=== PATIENT | female | born 1980 | race Two or more races ===

== ENCOUNTER 2017-04-26 18:10 | Emergency (ER) | payer OTHER ==
[2017-04-26 18:41] LABS: URINE HCG POC HCG NEGATIVE (Negative)
[2017-04-26 18:48] LABS: BILIRUBIN,URINE NEGATIVE (NEG); CLARITY,URINE CLEAR; COLOR,URINE YELLOW; GLUCOSE,URINE NEGATIVE (NEG); NITRITE,URINE NEGATIVE (NEG); PH,URINE 6.5; PROTEIN,URINE NEGATIVE (NEG-TRACE); UROBILINOGEN,URINE 0.2 mg/dL (0.2 mg/dL)
[2017-04-26 18:53] LABS: ADD MAN DIFF? NO
[2017-04-26 19:00] LABS: AGAP ISTAT 15 mmol/L (6-14); BACTERIA,URINE 0 /HPF (0-FEW); BUN ISTAT 12 mg/dL (8-26); CHLORIDE ISTAT 106 mmol/L (98-110); CREATININE ISTAT 0.6 mg/dL (0.5-1.4); GLUCOSE ISTAT 111 mg/dL (70-99); HEMATOCRIT ISTAT 32 % (36-40); HEMOGLOBIN ISTAT 10.9 g/dL (12-15); ION CA ISTAT 1.17 mmol/L (1.13-1.32); POTASSIUM ISTAT 3.9 mmol/L (3.5-5.0); RBC,URINE 0 /HPF (0-2); SODIUM ISTAT 141 mmol/L (135-145); TOT CO2 ISTAT 26 mmol/L (23-32); WBC,URINE 0 /HPF (0-4)
[2017-04-26 19:01] LABS: BASO % 1 % (0-3); EOS # 0.1 x10^3/uL (0.0-0.7); EOS % 1 % (0-3); HEMATOCRIT 34.3 % (36.0-47.0); HEMOGLOBIN 11.4 g/dL (12.0-15.5); LYMPH # 1.5 x10^3/uL (1.0-4.8); LYMPH % 22 % (24-48); MEAN CORPUSCULAR HEMOGLOBIN 27 pg (25-35); MEAN CORPUSCULAR HGB CONC 33 g/dL (31-37); MEAN CORPUSCULAR VOLUME 80 fL (79-100); MONO # 0.3 x10^3/uL (0.0-1.1); MONO % 5 % (0-9); NEUT # 4.9 x10^3uL (1.8-7.7); NEUT % 72 % (31-73); PLATELET COUNT 244 x10^3/uL (140-400); RED BLOOD COUNT 4.29 x10^6/uL (3.50-5.40); RED CELL DISTRIBUTION WIDTH 13.9 % (11.5-14.5); WHITE BLOOD COUNT 6.8 x10^3/uL (4.0-11.0)
[2017-04-26 19:09] LABS: ALBUMIN 3.8 g/dL (3.4-5.0); ALK PHOS 87 U/L (46-116); ALT (SGPT) 28 U/L (14-59); AST (SGOT) 21 U/L (15-37); DIRECT BILIRUBIN < 0.1 mg/dL (0.0-0.2); LIPASE 153 U/L (73-393); TOTAL BILIRUBIN 0.2 mg/dL (0.2-1.0); TOTAL PROTEIN 8.7 g/dL (6.4-8.2)
[2017-04-26] MEDS ORDERED: CONTRAST GIVEN MC (19:15)
[2017-04-26] MEDS: ONDANSETRON PF 4 MG/2 ML VIAL. IV (19:18)
[2017-04-26] MEDS: MORPHINE SULFATE 4 MG/ML DISP.SYRIN. IV (19:18)
[2017-04-26] MEDS: IV NORMAL SALINE 1000ML BAG 1,000 ML IV (19:19)
[2017-04-26] MEDS: IOHEXOL 300 MG/ML 100ML VIAL. IV (19:50)
== END 2017-04-26 20:31 | disposition home or self-care (01) ==
LOC: ER 18:10
DX: R10.84 Generalized abdominal pain (principal)
CPT/HCPCS: 36415; 74177; 80047; 80076; 81001; 81025; 83690; 85025; 96361; 96374; 96375; 99285-25; J2270; J2405; J7030; Q9967

== ENCOUNTER 2019-01-31 16:42 | Emergency (ER) | payer SELFPAY ==
[~2019-01-31] VITALS: Ht 152.4 cm; Wt 79.6 kg
[~2019-01-31 16:42] MED LIST: LEVE500T56 PO
[2019-01-31] MEDS ORDERED: MORPHINE SULFATE 10 MG/ML VIAL. IV STA (17:40)
[2019-01-31] MEDS ORDERED: IV NORMAL SALINE 1000ML BAG 1,000 ML IV ONE (17:45)
[2019-01-31] MEDS ORDERED: ONDANSETRON PF 4 MG/2 ML VIAL. IV ONE (17:45)
[2019-01-31 17:47] LABS: BASO % 1 % (0-3); EOS # 0.1 x10^3/uL (0.0-0.7); EOS % 1 % (0-3); HEMATOCRIT 33.4 % (36.0-47.0); HEMOGLOBIN 10.7 g/dL (12.0-15.5); LYMPH # 2.1 x10^3/uL (1.0-4.8); LYMPH % 29 % (24-48); MEAN CORPUSCULAR HEMOGLOBIN 23 pg (25-35); MEAN CORPUSCULAR HGB CONC 32 g/dL (31-37); MEAN CORPUSCULAR VOLUME 72 fL (79-100); MONO # 0.5 x10^3/uL (0.0-1.1); MONO % 7 % (0-9); NEUT # 4.6 x10^3/uL (1.8-7.7); NEUT % 62 % (31-73); PLATELET COUNT 302 x10^3/uL (140-400); RED BLOOD COUNT 4.62 x10^6/uL (3.50-5.40); WHITE BLOOD COUNT 7.4 x10^3/uL (4.0-11.0)
--- NOTE | 2019-01-31 17:51 | PHYS DOC ---
Past Medical History Past Medical History: No Pertinent History Past Surgical History: Tubal ligation Alcohol Use: None Drug Use: None Adult General Chief Complaint Chief Complaint: BLOODY STOOL [facility] HPI Patient is a 38 year old female who presents with nausea, vomiting, bright red blood in her stool every time she has a toilet. She is also having abdominal pain has been ongoing for week. She rates her pain 10 out of 10 in severity and sharp. States she has a history of seizures and also is a tubal ligation. Review of Systems Review of Systems Constitutional: Denies fever or chills [] Eyes: Denies change in visual acuity, redness, or eye pain [] HENT: Denies nasal congestion or sore throat [] Respiratory: Denies cough or shortness of breath [] Cardiovascular: No additional information not addressed in HPI [] GI: Reports abdominal pain, nausea, vomiting, and bloody stools. : Denies dysuria or hematuria [] Musculoskeletal: Denies back pain or joint pain [] Integument: Denies rash or skin lesions [] Neurologic: Denies headache, focal weakness or sensory changes [] Endocrine: Denies polyuria or polydipsia [] Complete systems were reviewed and found to be within normal limits, except as documented in this note. Current Medications Current Medications Current Medications Medications (Trade) Dose Ordered Sig/Thomas Start Time Stop Time Status Last Admin Dose Admin Info (CONTRAST GIVEN -- Rx MONITORING) 1 each PRN DAILY PRN 01/31/19 18:15 02/02/19 18:14 Iohexol (Omnipaque 300 Mg/ml) 75 ml 1X ONCE 01/31/19 18:30 01/31/19 18:31 DC 01/31/19 18:24 75 ML Morphine Sulfate (Morphine Sulfate) 5 mg 1X STAT 01/31/19 17:40 01/31/19 17:44 DC 01/31/19 19:04 5 MG Ondansetron HCl (Zofran) 4 mg 1X ONCE 01/31/19 17:45 01/31/19 17:46 DC 01/31/19 19:02 4 MG Sodium Chloride 1,000 ml @ 1,000 mls/hr 1X ONCE 01/31/19 17:45 01/31/19 18:44 DC 01/31/19 19:06 1,000 MLS/HR Allergies Allergies Allergies Coded Allergies Type Severity Reaction Last Updated Verified No Known Drug Allergies 04/26/17 No Physical Exam Physical Exam Constitutional: Well developed, well nourished, no acute distress, non-toxic appearance. [] HENT: Normocephalic, atraumatic, bilateral external ears normal, oropharynx moist, no oral exudates, nose normal. [] Eyes: PERRLA, EOMI, conjunctiva normal, no discharge. [] Neck: Normal range of motion, no tenderness, supple, no stridor. [] Cardiovascular:Heart rate regular rhythm, no murmur [] Lungs & Thorax: Bilateral breath sounds clear to auscultation [] Abdomen: Bowel sounds normal, soft, diffuse tenderness, no masses, no pulsatile masses. [] Skin: Warm, dry, no erythema, no rash. [] Back: No tenderness, no CVA tenderness. [] Extremities: No tenderness, no cyanosis, no clubbing, ROM intact, no edema. [] Neurologic: Alert and oriented X 3, normal motor function, normal sensory function, no focal deficits noted. [] Psychologic: Affect normal, judgement normal, mood normal. [] Rectal Exam: No blood noted on exam, no hemorrhoids. Current Patient Data Vital Signs Vital Signs Date Time Temp Pulse Resp B/P (MAP) Pulse Ox O2 Delivery O2 Flow Rate FiO2 01/31/19 19:04 13 97 Room Air 01/31/19 16:52 98.4 101 157/89 (111) 98.4 Lab Values Laboratory Tests Test 01/31/19 17:05 01/31/19 17:25 POC Urine HCG, Qualitative Hcg negative (Negative) White Blood Count 7.4 x10^3/uL (4.0-11.0) Red Blood Count 4.62 x10^6/uL (3.50-5.40) Hemoglobin 10.7 g/dL (12.0-15.5) L Hematocrit 33.4 % (36.0-47.0) L Mean Corpuscular Volume 72 fL (79-100) L Mean Corpuscular Hemoglobin 23 pg (25-35) L Mean Corpuscular Hemoglobin Concent 32 g/dL (31-37) Red Cell Distribution Width 17.0 % (11.5-14.5) H Platelet Count 302 x10^3/uL (140-400) Neutrophils (%) (Auto) 62 % (31-73) Lymphocytes (%) (Auto) 29 % (24-48) Monocytes (%) (Auto) 7 % (0-9) Eosinophils (%) (Auto) 1 % (0-3) Basophils (%) (Auto) 1 % (0-3) Neutrophils # (Auto) 4.6 x10^3/uL (1.8-7.7) Lymphocytes # (Auto) 2.1 x10^3/uL (1.0-4.8) Monocytes # (Auto) 0.5 x10^3/uL (0.0-1.1) Eosinophils # (Auto) 0.1 x10^3/uL (0.0-0.7) Basophils # (Auto) 0.0 x10^3/uL (0.0-0.2) Prothrombin Time 13.2 SEC (11.7-14.0) Prothrombin Time INR 1.0 (0.8-1.1) Activated Partial Thromboplast Time 28 SEC (24-38) Sodium Level 140 mmol/L (136-145) Potassium Level 3.7 mmol/L (3.5-5.1) Chloride Level 103 mmol/L (98-107) Carbon Dioxide Level 25 mmol/L (21-32) Anion Gap 12 (6-14) Blood Urea Nitrogen 12 mg/dL (7-20) Creatinine 0.7 mg/dL (0.6-1.0) Estimated GFR (Cockcroft-Gault) 92.7 BUN/Creatinine Ratio 17 (6-20) Glucose Level 101 mg/dL (70-99) H Calcium Level 8.1 mg/dL (8.5-10.1) L Total Bilirubin 0.3 mg/dL (0.2-1.0) Aspartate Amino Transferase (AST) 36 U/L (15-37) Alanine Aminotransferase (ALT) 40 U/L (14-59) Alkaline Phosphatase 71 U/L (46-116) Total Protein 8.0 g/dL (6.4-8.2) Albumin 3.5 g/dL (3.4-5.0) Albumin/Globulin Ratio 0.8 (1.0-1.7) L Laboratory Tests 01/31/19 17:25 Laboratory Tests 01/31/19 17:25 EKG EKG [] Radiology/Procedures Radiology/Procedures [facility] [address] [place] [address] IMAGING REPORT Signed PATIENT: MELVIN NAVA ACCOUNT: [id number] : 1980 LOCATION: ER AGE: 38 SEX: F EXAM STATUS: REG ER ORD. PHYSICIAN: DARSHANA HAWKINS APRN REASON: RUQ abdominal pain, cholilthiasis on CT PROCEDURE: ABDOMEN LTD Examination: ABDOMEN LTD History: Right upper quadrant pain Comparison/Correlation: 01/31/2019 CT abdomen and pelvis with contrast Findings: Limited right upper quadrant ultrasound exam was performed. Fatty infiltration of liver is present. Calculus measuring 2.5 cm diameter within the gallbladder is present. There is no gallbladder wall thickening. No pericholecystic fluid. Right kidney measures 11.5 cm longitudinal. No right hydronephrosis. Common bile duct diameter is normal. Portal venous flow was not assessed. No right upper quadrant ascites. Proximal pancreas is unremarkable. Distal pancreas is obscured by bowel gas. Impression: Cholelithiasis. Fatty infiltration of the liver. No acute inflammatory findings. Electronically signed by: Ricky Linares MD (01/31/2019 8:32 PM) [facility] DICTATED and SIGNED BY: RICKY LINARES MD DATE: 01/31/192031 [][facility] [address] [place] [address] IMAGING REPORT Signed PATIENT: MELVIN NAVA ACCOUNT: [id number] : 1980 LOCATION: ER AGE: 38 SEX: F EXAM STATUS: REG ER ORD. PHYSICIAN: DARSHANA HAWKINS APRN REASON: abd pain, n/v, GI bleeding, OMNI 300, 75 ML IV PROCEDURE: CT ABD PELV W/ IV CONTRST ONLY CT abdomen and pelvis with contrast. HISTORY: Abdominal pain, nausea and vomiting, GI bleed CT scan the abdomen and pelvis was done using 75 mL Omnipaque 300 contrast. There is mild atelectasis in the lung bases. There is no pleural effusion. There is diffuse fatty infiltration of the liver without a focal lesion. There is a calcified gallstone the gallbladder. The gallbladder is contracted. Spleen and adrenal glands are normal. Pancreas is normal. There is no mass or hydronephrosis in the kidneys. There is no free air or bowel obstruction. Appendix is normal. Uterus and ovaries are unremarkable. There is no ascites. IMPRESSION: 1. Fatty change in the liver. 2. Cholelithiasis. 3. Normal appendix. 4. No bowel obstruction or other acute finding. [facility] Compliance Statement: One or more of the following individualized dose reduction techniques were utilized for this examination: 1. Automated exposure control 2. Adjustment of the mA and/or kV according to patient size 3. Use of iterative reconstruction technique Electronically signed by: Ismael Sharma MD (01/31/2019 6:51 PM) [facility] DICTATED and SIGNED BY: ISMAEL SHARMA MD DATE: 01/31/191850 Course & Med Decision Making Course & Med Decision Making Pertinent Labs and Imaging studies reviewed. (See chart for details) Will get CT scan, labs, and supportive care. Sent fecal occult card down to lab. Impression: Cholelithiasis. Fatty infiltration of the liver. No acute inflammatory findings. Electronically signed by: Ricky Linares MD (01/31/2019 8:32 PM) [facility] IMPRESSION: 1. Fatty change in the liver. 2. Cholelithiasis. 3. Normal appendix. 4. No bowel obstruction or other acute finding. Labs are stable. The patient has had no bleeding while in ER. Will d/c home and have follow up with primary care and GI. The patient will be instructed that if symptoms worsen return to ER. Dragon Disclaimer Dragon Disclaimer This electronic medical record was generated, in whole or in part, using a voice recognition dictation system. Departure Departure Impression: Primary Impression: Rectal bleeding Additional Impressions: Cholelithiasis Abdominal pain Disposition: HOME, SELF-CARE Condition: STABLE Referrals: JANNY LEI MD (PCP) BHAVIN WASHINGOTN MD Patient Instructions: Abdominal Pain, Cholelithiasis, Rectal Bleeding Additional Instructions: Thank you for visiting [facility]. We appreciate you trusting us with your care. If any additional problems come up don't hesitate to return to visit us. Please follow up with your primary care provider so they can plan additional care if needed and know about the problem that you had. If symptoms worsen come back to the Emergency Department. Any concerning symptoms that start such as chest pain, shortness of air, weakness or numbness on one side of the body, running high fevers or any other concerning symptoms return to the ER. Please follow up with primary care doctor and GI doctor. If the bleeding worsens please come back to the ER. If you start feeling dizzy please return to the ER. Scripts Dicyclomine Hcl (DICYCLOMINE HCL) 10 Mg Capsule 1 CAP PO PRN Q6HRS PRN for PAIN, #100 CAP 3 Refills Prov: DARSHANA HAWKINS APRN 01/31/19 Ondansetron (ONDANSETRON ODT) 4 Mg Tab.rapdis 1 TAB PO PRN Q6-8HRS PRN for NAUSEA, #16 TAB Prov: DARSHANA HAWKINS APRN 01/31/19 Problem Qualifiers Additional Impressions: Cholelithiasis Cholelithiasis location: other site Biliary obstruction: without biliary obstruction Qualified Codes: K80.80 - Other cholelithiasis without obstruction DARSHANA HAWKINS APRN Jan 31, 2019 17:51
[2019-01-31 17:56] LABS: PROTHROMBIN TIME PATIENT 13.2 SEC (11.7-14.0)
[2019-01-31 18:00] LABS: CALCIUM 8.1 mg/dL (8.5-10.1); CREATININE 0.7 mg/dL (0.6-1.0); GFR 92.7; POTASSIUM 3.7 mmol/L (3.5-5.1)
[2019-01-31 18:04] LABS: ALBUMIN 3.5 g/dL (3.4-5.0); ALBUMIN/GLOBULIN RATIO 0.8 (1.0-1.7); TOTAL BILIRUBIN 0.3 mg/dL (0.2-1.0)
[2019-01-31] MEDS ORDERED: CONTRAST GIVEN. MC PRN (18:15)
[2019-01-31] MEDS ORDERED: IOHEXOL 300 MG/ML 100ML VIAL. IV ONE (18:30)
--- NOTE | 2019-01-31 18:54 | RAD ---
CT abdomen and pelvis with contrast. HISTORY: Abdominal pain, nausea and vomiting, GI bleed CT scan the abdomen and pelvis was done using 75 mL Omnipaque 300 contrast. There is mild atelectasis in the lung bases. There is no pleural effusion. There is diffuse fatty infiltration of the liver without a focal lesion. There is a calcified gallstone the gallbladder. The gallbladder is contracted. Spleen and adrenal glands are normal. Pancreas is normal. There is no mass or hydronephrosis in the kidneys. There is no free air or bowel obstruction. Appendix is normal. Uterus and ovaries are unremarkable. There is no ascites. IMPRESSION: 1. Fatty change in the liver. 2. Cholelithiasis. 3. Normal appendix. 4. No bowel obstruction or other acute finding. [facility] Compliance Statement: One or more of the following individualized dose reduction techniques were utilized for this examination: 1. Automated exposure control 2. Adjustment of the mA and/or kV according to patient size 3. Use of iterative reconstruction technique Electronically signed by: Ismael Sharma MD (01/31/2019 6:51 PM) [facility]
--- NOTE | 2019-01-31 20:35 | RAD ---
Examination: ABDOMEN LTD History: Right upper quadrant pain Comparison/Correlation: 01/31/2019 CT abdomen and pelvis with contrast Findings: Limited right upper quadrant ultrasound exam was performed. Fatty infiltration of liver is present. Calculus measuring 2.5 cm diameter within the gallbladder is present. There is no gallbladder wall thickening. No pericholecystic fluid. Right kidney measures 11.5 cm longitudinal. No right hydronephrosis. Common bile duct diameter is normal. Portal venous flow was not assessed. No right upper quadrant ascites. Proximal pancreas is unremarkable. Distal pancreas is obscured by bowel gas. Impression: Cholelithiasis. Fatty infiltration of the liver. No acute inflammatory findings. Electronically signed by: Ricky Morales MD (01/31/2019 8:32 PM) [facility]
[2019-01-31 21:01] VITALS: BP 147/91
[2019-01-31] MEDS ORDERED: ONDA4TAB12 PO (21:15)
[2019-01-31] MEDS ORDERED: DICY10CA3 PO (21:19)
[2019-01-31] MEDS ORDERED: DICYCLOMINE HCL 10 MG CAPSULE PO STA (21:51)
[2019-01-31] MEDS ORDERED: DICYCLOMINE HCL 10 MG CAPSULE ONE (21:55)
== END 2019-01-31 21:47 | disposition home or self-care (01) ==
LOC: ER 16:42
DX: K62.5 Hemorrhage of anus and rectum (principal); K80.20 Calculus of gallbladder without cholecystitis without obstruction; R11.2 Nausea with vomiting, unspecified; R10.11 Right upper quadrant pain; Z98.51 Tubal ligation status; Z79.899 Other long term (current) drug therapy
CPT/HCPCS: 36415; 74177; 76705; 80053; 81025; 85025; 85610; 85730; 96361; 96374; 96375; 99285; J2270; J2405; J7030; Q9967

== ENCOUNTER 2019-02-05 16:59 | Emergency (ER) | payer SELFPAY ==
[~2019-02-05] VITALS: Ht 162.6 cm; Wt 79.4 kg
[~2019-02-05 16:59] MED LIST changes: +DICY10CA3 PO; +ONDA4TAB12 PO
[2019-02-05] MEDS ORDERED: LIDOCAINE 2% TOPICAL JELLY 5GM TUBE. TP ONE (18:30)
--- NOTE | 2019-02-05 18:39 | PHYS DOC ---
Past Medical History Past Medical History: Seizure (IVONENRIQUE APRN) Past Surgical History: Tubal ligation (ENRIQUE DEL VALLE APRN) Alcohol Use: None Drug Use: None (IVONENRIQUE SHER) Adult General Chief Complaint Chief Complaint: RECTAL BLEED [facility] HPI Patient is a 38 year old female with a history of seizures presented to the ED today complaining of rectal bleeding only when she wipes herself after bowel movements due to hemorrhoids, symptoms for a week. Patient denies abdominal pain today. Denies any nausea vomiting. Denies being on any anticoagulants. Patient was in the ED 5 days ago and had an extensive workup including a negative CAT scan of the abdomen and pelvic. (CHRISTINEENRIQUE Fisher APRN) Review of Systems Review of Systems Constitutional: Denies fever or chills [] Eyes: Denies change in visual acuity, redness, or eye pain [] HENT: Denies nasal congestion or sore throat [] Respiratory: Denies cough or shortness of breath [] Cardiovascular: No additional information not addressed in HPI [] GI: Reports rectal bleeding. Denies abdominal pain, nausea, vomiting, bloody stools or diarrhea [] : Denies dysuria or hematuria [] Musculoskeletal: Denies back pain or joint pain [] Integument: Denies rash or skin lesions [] Neurologic: Denies headache, focal weakness or sensory changes [] All other systems were reviewed and found to be within normal limits, except as documented in this note. (IVONENRIQUE SHER) Current Medications Current Medications Current Medications Medications (Trade) Dose Ordered Sig/Thomas Start Time Stop Time Status Last Admin Dose Admin Dicyclomine HCl (Bentyl) 10 mg 1X ONCE 02/05/19 19:00 02/05/19 19:01 DC 02/05/19 18:44 10 MG Lidocaine HCl (Xylocaine 2% Topical 5gm Tube) 1 myrna 1X ONCE 02/05/19 18:30 02/05/19 18:31 DC 02/05/19 18:44 1 MYRNA Ondansetron HCl (Zofran Odt) 4 mg 1X ONCE 02/05/19 19:00 02/05/19 19:01 DC 02/05/19 18:44 4 MG (DARSHANA HANKINS DO) Allergies Allergies Allergies Coded Allergies Type Severity Reaction Last Updated Verified No Known Drug Allergies 04/26/17 No (DARSHANA HANKINS DO) Physical Exam Physical Exam Constitutional: Well developed, well nourished, no acute distress, non-toxic appearance. [] HENT: Normocephalic, atraumatic, bilateral external ears normal, oropharynx moist, no oral exudates, nose normal. [] Eyes: PERRLA, EOMI, conjunctiva normal, no discharge. [] Neck: Normal range of motion, no tenderness, supple, no stridor. [] Cardiovascular:Heart rate regular rhythm, no murmur [] Lungs & Thorax: Bilateral breath sounds clear to auscultation [] Abdomen: Bowel sounds normal, soft, no tenderness, no masses, no pulsatile masses. [] External rectum with tiny peas size external hemorrhoid, no internal hemorrhoids, no stool noted on Hemoccult. Skin: Warm, dry, no erythema, no rash. [] Back: No tenderness, no CVA tenderness. [] Extremities: No tenderness, no cyanosis, no clubbing, ROM intact, no edema. [] Neurologic: Alert and oriented X 3, normal motor function, normal sensory function, no focal deficits noted. [] Psychologic: Affect normal, judgement normal, mood normal. [] (ENRIQUE DEL VALLE APRN) Current Patient Data Vital Signs Vital Signs Date Time Temp Pulse Resp B/P (MAP) Pulse Ox O2 Delivery O2 Flow Rate FiO2 02/05/19 18:55 76 21 134/82 (99) 96 Room Air 02/05/19 17:25 98.7 98.7 (DARSHANA HANKINS DO) Lab Values Laboratory Tests Test 02/05/19 17:27 POC Urine HCG, Qualitative Hcg negative (Negative) (DARSHANA HANKINS DO) EKG EKG [] (ENRIQUE DEL VALLE APRN) Radiology/Procedures Radiology/Procedures [] (ENRIQUE DEL VALLE APRN) Course & Med Decision Making Course & Med Decision Making Pertinent Labs and Imaging studies reviewed. (See chart for details) This is a 38-year-old female patient presenting to the ED today with rectal bleeding from hemorrhoids. Patient was seen in the ED 5 days ago for the same complaint. We discussed ways managing hemorrhoids including diet and follow fiber increasing water intake,otc tucks. Provided lidocaine cream in the ED. Instructed to follow-up with the PCP next week. Interpretation was provided by family for Rober language (ENRIQUE DEL VALLE APRN) Robbin Disclaimer Dragon Disclaimer This electronic medical record was generated, in whole or in part, using a voice recognition dictation system. (ENRIQUE DEL VALLE APRN) Departure Departure Impression: Primary Impression: Hemorrhoids Disposition: HOME, SELF-CARE Condition: STABLE Referrals: JANNY LEI MD (PCP) follow up in one week Patient Instructions: Hemorrhoids, [id number] Additional Instructions: You were evaluated in the emergency room for rectal bleeding from hemorrhoids. Please consider increasing your dietary fiber intake as well as water intake. Please use the prescribed medications as ordered. Consider sitz baths twice a day. Scripts Hydrocortisone (ANUSOL-HC) 30 Gm Cream..g. 1 MYRNA TP TID, #30 GM 0 Refills Prov: ENRIQUE DEL VALLE APRN 02/05/19 Docusate Sodium (DOCUSATE SODIUM) 100 Mg Capsule 1 CAP PO BID for constipation for 7 Days, #14 CAP 0 Refills Prov: ENRIQUE DEL VALLE APRN 02/05/19 Attending Signature Attending Signature I have reviewed the PA/SECURITY GUARD DISPATCHER's note and plan of care. I was available for consultation as needed during the patient's visit in the emergency department. I agree with the clinical impression, plan, and disposition. (DARSHANA HANKINS DO) Problem Qualifiers Primary Impression: Hemorrhoids Hemorrhoid type: unspecified Qualified Codes: K64.9 - Unspecified hemorrhoids ENRIQUE DEL VALLE APRN Feb 05, 2019 18:39 DARSHANA HANKINS DO Feb 06, 2019 01:10
[2019-02-05] MEDS ORDERED: DOCU100C28 PO (18:47)
[2019-02-05] MEDS ORDERED: HYDR30CR61 TP (18:47)
[2019-02-05 18:55] VITALS: BP 134/82
[2019-02-05] MEDS ORDERED: ONDANSETRON ODT 4 MG TAB.RAPDIS. PO ONE (19:00)
[2019-02-05] MEDS ORDERED: DICYCLOMINE 20 MG/2 ML AMPUL. IM ONE (19:00)
--- NOTE | 2019-02-06 06:47 | EKG ---
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
== END 2019-02-05 19:29 | disposition home or self-care (01) ==
LOC: ER 16:59
DX: K64.4 Residual hemorrhoidal skin tags (principal); Z98.51 Tubal ligation status; Z79.899 Other long term (current) drug therapy
CPT/HCPCS: 81025; 93005; 96372; 99283; J0500; Q0162